=== PATIENT | female | born 1965 | race Caucasian/White ===

== ENCOUNTER 2017-06-11 13:08 | Observation (INO) | payer BC ==
[2017-06-11 13:13] VITALS: BMI 20.7
--- NOTE | 2017-06-11 13:42 | DR.GENAD ---
HPI - HPI Comment HPI Comment: PATIENT WAS AT [facility] [place] WHERE SHE HAD CARDIAC CATH DONE. BIDIRECTIONAL FORAMEN OVALE WAS NOTED. MRI WAS DONE ALSO. SHE IS HAVIND SOME CHEST DISCOMFORT CURRENTLY. NO FEVER. - Complaint/Symptoms Chief Complaint Doctors Comments: NEAR SYNCOPAL EPISODE. PATIENT WAS OBSERVE TO BE PALE AND SHAKY. Chief Complaint:: PATIENT IS SHAKEY,CLAMY, NAUSEOUS. PT STATED SHE JUST HAD A HEART CATH. - Nurses notes reviewed Nurses Notes Review: Yes - Source History Provided: Patient - Mode of Arrival Mode of Arrival: Ambulatory - Timing Onset of Chief Complaint: 06/11/17 Came on: Suddenly - Duration Duration: Constant Duration: Hours - Severity Severity: Moderate PMH - PMH Past Medical History: Yes Past Medical History Comment: AAA, VALVE OPEN WITH BLOOD FLOW FROM ALL 4 DIRECTIONS Past Surgical History: Yes Surgical History: Appendectomy, Tonsillectomy Past Surgical History Comment: HEART CATH - Family History History of Family Medical Conditions: Yes Family Medical History: [place] - Social History Does patient currently use any type of tobacco product: Yes Have you used tobacco products in the last 12 months: Yes Type of Tobacco Use: Cigarettes Does any household member use tobacco: Yes Alcohol Use: DAILY Do you use any recreational Drugs:: No Lives With: Family Lives Where: Home - infectious screening In the last 2 months have you had wt loss of >10#?: NO Have you had fever, night sweats or hemotysis?: No Have you traveled outside the country in the last 6 months?: No Isolation: Standard ROS - Review of Systems Constitutional: Weakness, Fatigue. negative: Chills, Fever, Loss of Appetite Eyes: No Symptoms Reported. negative: Eye Pain, Discharge ENTM: No Symptoms Reported. negative: Ear Pain, Nose Discharge, Nose Congestion , Throat Pain Respiratoy: No Symptoms Reported, Short of Breath. negative: Productive Cough, Non-Productive Cough, Wheezing, Hemoptysis Cardiovascular: Chest Pain, Palpitations. negative: Edema, Syncope (NEAR SYNCOPE) Gastrointestinal/Abdominal: No Symptoms Reported. negative: Constipation, Diarrhea, Nausea, Vomiting Genitourinary: No Symptoms Reported. negative: Dysuria, Frequency, Hematuria Neurological: Headache, Weakness, Dizziness Musculoskeletal: Muscle Pain Integumentary: No Symptoms Reported Hematologic/Lymphatic: No Symptoms Reported Endocrine: No Symptoms Reported All Other Systems: Reviewed and Negative PE - Vital Signs Vitals: Temperature 98.4 F Pulse Rate [Right Brachial] 66 Pulse Rate 95 Respiratory Rate 16 Blood Pressure [Right Arm] 132/81 Blood Pressure 178/104 O2 Sat by Pulse Oximetry 99 - General Limitations: No Limitations General Appearance: Alert, Anxious - Head Head Exam: Atraumatic, Other (LEFT FACIAL PARESTHESIA) - Eyes Eye exam: PERRL, EOMI. negative: Scleral Icterus, Conjunctival Injection, Nystagmus - ENT ENT Exam: Normal External Ear Exam External Ear Exam: Normal External Inspection TM/Canal Exam: Bilateral Normal MDM - Additional Information Additional Information Obtained From: Family - Differential Diagnosis Differential Diagnosis: NEAR SYNCOPE, HYPERTENSION, CHEST PAIN, WEAKNESS Course - Treatment Treatment: SEE ORDERS. - Consultation Consultation Comments: DISCUSS PATIENT WITH DR. GILBERT. HE WILL ADMIT PATIENT. - Education/Counseling Education/Counseling: Patient, Family, Education Educated On: Diagnosis ROR - Labs Reviewed Laboratory Results Reviewed?: Yes Result Diagrams: 06/13/17 03:55 06/13/17 03:55 Laboratory: WBC 12.1 X10^3/uL (3.6-10.0) H 06/11/17 13:52 RBC 4.63 X10^6/uL (3.5-5.4) 06/11/17 13:52 Hgb 14.5 g/dL (12.0-16.0) 06/11/17 13:52 Hct 42.0 % (36.0-47.0) 06/11/17 13:52 MCV 90.8 fL (80.0-100.0) 06/11/17 13:52 MCH 31.3 pg (27.0-34.0) 06/11/17 13:52 MCHC 34.4 g/dL (33.0-35.0) 06/11/17 13:52 RDW 14.5 % (11.6-16.5) 06/11/17 13:52 Plt Count 291 X10^3/uL (150.0-450.0) 06/11/17 13:52 MPV 7.7 fL (7.4-11.0) 06/11/17 13:52 Neut % 68.0 % (42.0-75.0) 06/11/17 13:52 Lymph % 23.3 % (21.0-51.0) 06/11/17 13:52 [place] % 6.2 % (0.0-13.0) 06/11/17 13:52 Eos % 1.4 % (0.9-2.9) 06/11/17 13:52 Baso % 1.1 % (0.2-1.0) H 06/11/17 13:52 Neut # 8.2 x10^3/uL (2.2-4.8) H 06/11/17 13:52 Lymph # 2.8 X10^3/uL (1.3-2.9) 06/11/17 13:52 [place] # 0.7 x10^3/uL (0.3-0.8) 06/11/17 13:52 Eos # 0.2 x10^3/uL (0.0-0.2) 06/11/17 13:52 Baso # 0.1 X10^3/uL (0.0-0.1) 06/11/17 13:52 Absolute Nucleated RBC 0.1 /100WBC 06/11/17 13:52 Sodium 141 mmol/L (136-145) 06/11/17 13:52 Corrected Sodium 143 mmol/L (136-145) 06/11/17 13:52 Potassium 2.9 mmol/L (3.5-5.1) L* 06/11/17 13:52 Chloride 102 mmol/L (98-107) 06/11/17 13:52 Carbon Dioxide 27.8 mmol/L (21-32) 06/11/17 13:52 BUN 15 mg/dL (7-18) 06/11/17 13:52 Creatinine 1.16 mg/dL (0.55-1.02) H 06/11/17 13:52 Est GFR (MDRD) Af Amer > 60 (>60) 06/11/17 13:52 Est GFR (MDRD) Non-Af 52 (>60) L 06/11/17 13:52 Glucose 169 mg/dL (65-99) H 06/11/17 13:52 Calcium 8.7 mg/dL (8.5-10.1) 06/11/17 13:52 Corrected Calcium 9.3 mg/dL (8.5-10.1) 06/11/17 13:52 Total Bilirubin 0.20 mg/dL (0.2-1.0) 06/11/17 13:52 AST 16 Units/L (15-37) 06/11/17 13:52 ALT 21 Units/L (12-78) 06/11/17 13:52 Alkaline Phosphatase 84 Units/L (46-116) 06/11/17 13:52 Creatine Kinase 59 Units/L (26-192) 06/11/17 13:52 CK-MB (CK-2) 0.2 ng/mL (0-4.0) 06/11/17 13:52 CK/CKMB % Calc 0.3 % (<4) 06/11/17 13:52 Troponin I < 0.02 ng/mL (0-1.5) 06/11/17 13:52 Total Protein 7.3 g/dL (6.4-8.2) 06/11/17 13:52 Albumin 3.3 g/dL (3.4-5.0) L 06/11/17 13:52 Globulin 4.0 g/dL (2.5-4.5) 06/11/17 13:52 Albumin/Globulin Ratio 0.8 Ratio (1.1-2.1) L 06/11/17 13:52 - XRAY XRAY Interpreted by: Radiologist XRAY Findings: REPORT DISCUSS WITH PATIENT. - EKG Rhythm: NSR (EKG NOTED) - Diagnosis Discharge Problem: Near syncope, Weakness on left side of face, Hypokalemia Chest pain Qualifiers: Chest pain type: unspecified Qualified Code(s): R07.9 - Chest pain, unspecified - Discharge Plan Disposition: ADMITTED INPATIENT Condition: Stable - Follow ups/Referrals - Instructions
[2017-06-11 14:05] LABS: BASOPHILS # (AUTO) 0.1 X10^3/uL (0.0-0.1); BASOPHILS % (AUTO) 1.1 % (0.2-1.0); EOSINOPHILS # (AUTO) 0.2 x10^3/uL (0.0-0.2); EOSINOPHILS % (AUTO) 1.4 % (0.9-2.9); HEMOGLOBIN 14.5 g/dL (12.0-16.0); LYMPHOCYTES # (AUTO) 2.8 X10^3/uL (1.3-2.9); LYMPHOCYTES % (AUTO) 23.3 % (21.0-51.0); MEAN CORPUSCULAR HEMOGLOBIN 31.3 pg (27.0-34.0); MEAN CORPUSCULAR HGB CONC 34.4 g/dL (33.0-35.0); MEAN CORPUSCULAR VOLUME 90.8 fL (80.0-100.0); MEAN PLATELET VOLUME 7.7 fL (7.4-11.0); MONOCYTES # (AUTO) 0.7 x10^3/uL (0.3-0.8); MONOCYTES % (AUTO) 6.2 % (0.0-13.0); NEUTROPHILS # (AUTO) 8.2 x10^3/uL (2.2-4.8); PLATELET COUNT 291 X10^3/uL (150.0-450.0); RED BLOOD COUNT 4.63 X10^6/uL (3.5-5.4); RED CELL DISTRIBUTION WIDTH 14.5 % (11.6-16.5); WHITE BLOOD COUNT 12.1 X10^3/uL (3.6-10.0)
--- NOTE | 2017-06-11 14:33 | RAD ---
HISTORY: 51-year-old female with chest pain. Study: Frontal view of the chest. Comparison: None. Findings: The trachea is midline. The cardiac silhouette is unremarkable. The lungs are clear without focal consolidation, effusion or pneumothorax. Soft tissues are unremarkable. Osseus structures are unrem arkable. IMPRESSION: 1. No acute cardiopulmonary disease. Reported By:
--- NOTE | 2017-06-11 14:35 | CT ---
CT HEAD WITHOUT CONTRAST CLINICAL HISTORY: 51-year-old female with altered mental status. COMPARISON: None. TECHNIQUE: Multiple, non-contrasted axial CT images were obtained from the skull base to the crania l vertex. Coronal and sagittal reformats were performed. FINDINGS: There are no abnormal intra- or extra-axial fluid collections, midline shift, or mass effe ct. Cesar-white differentiation is normal. Global cortical involutional changes are present that are advanced for the patient's stated age. The ventricular system is mildly enlarged but commensurate wi th the degree of sulcal prominence. Periventricular and supraventricular white matter hypodensity is present that is nonspecific in appearance, but most likely to represent microvascular ischemic montez ges. Atherosclerotic vascular calcification is present within the carotid siphons. The imaged paranasal sinuses, mastoid air cells, and tympanic spaces are clear. IMPRESSION: 1. No definite evidence of an acute intracranial process. If clinical concern persists, recommend MR I/MRA brain. 2. Mild microvascular white matter ischemic changes, with associated volume loss. Reported By:
[2017-06-11 14:37] LABS: ALANINE AMINOTRANSFERASE 21 Units/L (12-78); ALBUMIN 3.3 g/dL (3.4-5.0); ALKALINE PHOSPHATASE 84 Units/L (46-116); ASPARTATE AMINO TRANSFERASE 16 Units/L (15-37); BLOOD UREA NITROGEN 15 mg/dL (7-18); CALCIUM 8.7 mg/dL (8.5-10.1); CARBON DIOXIDE 27.8 mmol/L (21-32); CHLORIDE 102 mmol/L (98-107); COR CA(FOR HYPOALB) 9.3 mg/dL (8.5-10.1); COR NA(FOR HYPERGLY) 143 mmol/L (136-145); CREATINE KINASE 59 Units/L (26-192); CREATININE 1.16 mg/dL (0.55-1.02); GLUCOSE 169 mg/dL (65-99); SODIUM 141 mmol/L (136-145); TOTAL PROTEIN 7.3 g/dL (6.4-8.2); TROPONIN I < 0.02 ng/mL (0-1.5); eGFR BLACK RACES > 60 (>60); eGFR NON BLACK RACES 52 (>60)
[2017-06-11] MEDS ORDERED: POTASSIUM CHLORIDE LIQ 20 MEQ UDC PO ONE (14:51)
[2017-06-11 14:56] LABS: CKMB % 0.3 % (<4); CREATINE KINASE MB 0.2 ng/mL (0-4.0)
[2017-06-11] MEDS ORDERED: POTASSIUM CHLORIDE LIQ 20 MEQ UDC ONE (15:08)
[2017-06-11] MEDS ORDERED: ATIVAN TAB 1 MG PO PRN (17:59)
[2017-06-11 20:57] LABS: CKMB % 0.2 % (<4); CREATINE KINASE MB 0.1 ng/mL (0-4.0)
[2017-06-11] MEDS: RESTORIL CAP 30 MG PO PRN (21:50)
[2017-06-11] MEDS ORDERED: BENADRYL INJ 50 MG VIAL ONE (23:22)
[2017-06-11] MEDS: NS 1000 ML 1,000 ML IV SCH (23:27)
[2017-06-11] MEDS ORDERED: BENADRYL INJ 50 MG VIAL IVP ONE (23:28)
[2017-06-12 02:49] LABS: BASOPHILS # (AUTO) 0.2 X10^3/uL (0.0-0.1); BASOPHILS % (AUTO) 1.7 % (0.2-1.0); EOSINOPHILS # (AUTO) 0.3 x10^3/uL (0.0-0.2); EOSINOPHILS % (AUTO) 2.6 % (0.9-2.9); HEMATOCRIT 38.3 % (36.0-47.0); LYMPHOCYTES # (AUTO) 3.9 X10^3/uL (1.3-2.9); LYMPHOCYTES % (AUTO) 35.5 % (21.0-51.0); MEAN CORPUSCULAR HGB CONC 33.9 g/dL (33.0-35.0); MEAN CORPUSCULAR VOLUME 91.4 fL (80.0-100.0); MEAN PLATELET VOLUME 7.7 fL (7.4-11.0); MONOCYTES # (AUTO) 0.7 x10^3/uL (0.3-0.8); MONOCYTES % (AUTO) 6.6 % (0.0-13.0); NEUTROPHILS # (AUTO) 5.8 x10^3/uL (2.2-4.8); NEUTROPHILS % (AUTO) 53.6 % (42.0-75.0); PLATELET COUNT 244 X10^3/uL (150.0-450.0); RED BLOOD COUNT 4.19 X10^6/uL (3.5-5.4); RED CELL DISTRIBUTION WIDTH 14.8 % (11.6-16.5); WHITE BLOOD COUNT 10.9 X10^3/uL (3.6-10.0)
[2017-06-12 02:58] LABS: ALANINE AMINOTRANSFERASE 19 Units/L (12-78); ALBUMIN 2.7 g/dL (3.4-5.0); ALKALINE PHOSPHATASE 68 Units/L (46-116); ASPARTATE AMINO TRANSFERASE 14 Units/L (15-37); BLOOD UREA NITROGEN 10 mg/dL (7-18); CALCIUM 8.6 mg/dL (8.5-10.1); CARBON DIOXIDE 29.4 mmol/L (21-32); CHLORIDE 108 mmol/L (98-107); CHOL/HDL RATIO 2.3 (0.0-5.0); CHOLESTEROL 147 mg/dL (0-200); COR CA(FOR HYPOALB) 9.6 mg/dL (8.5-10.1); CREATININE 0.91 mg/dL (0.55-1.02); GLUCOSE 88 mg/dL (65-99); HDL CHOLESTEROL 65 mg/dL (40-60); SODIUM 144 mmol/L (136-145); TOTAL PROTEIN 5.9 g/dL (6.4-8.2); TRIGLYCERIDES 74 mg/dL (0-150); eGFR BLACK RACES > 60 (>60); eGFR NON BLACK RACES > 60 (>60)
[2017-06-12 03:12] LABS: CKMB % 2.2 % (<4); CREATINE KINASE 45 Units/L (26-192); CREATINE KINASE MB < 1.0 ng/mL (0-4.0); TROPONIN I < 0.02 ng/mL (0-1.5)
[2017-06-12] MEDS ORDERED: K-DUR TAB 20 MEQ PO PRN (05:57)
[2017-06-12] MEDS ORDERED: POTASSIUM CHLORIDE LIQ 20 MEQ UDC PO PRN (05:57)
[2017-06-12] MEDS ORDERED: K-LYTE EFFERVESCENT PO PRN (05:57)
[2017-06-12] MEDS ORDERED: K-RIDER 10 MEQ/NS 100 ML 10 MEQ/100 ML BAG IV PRN (05:57)
[2017-06-12] MEDS ORDERED: NORCO 5/325 MG TAB ONE (06:01)
[2017-06-12] MEDS ORDERED: K-DUR TAB 20 MEQ PO ONE (06:01)
[2017-06-12] MEDS: NORCO 5/325 MG TAB PO PRN (06:05)
[2017-06-12] MEDS ORDERED: DEMADEX PO SCH (09:00)
[2017-06-12] MEDS ORDERED: NICODERM PATCH 21 MG/24 HR TD ONE (09:45)
[2017-06-12] MEDS: ASPIRIN EC 81 MG PO SCH (09:48)
[2017-06-12] MEDS: NICODERM PATCH 21 MG/24 HR TD SCH (09:49)
[2017-06-12] MEDS: CHECK PATCH XX SCH ×2 (10:00→21:44)
[2017-06-12 11:00] LABS: HEMOGLOBIN A1C 6.1 % (4.5-6.2)
[2017-06-12 11:17] LABS: C-REACTIVE PROTEIN 21.8 mg/L (0-3.0)
--- NOTE | 2017-06-12 12:35 | DR.H&P ---
H&P - History & Physical for Day of: H&P Date: 06/11/17 - Chief Complaint Chief Complaint: CHEST PAIN, DIZZINESS, NAUSEA, FACIAL DROOPING - Allergies Allergies/Adverse Reactions: Allergies Allergy/AdvReac Type Severity Reaction Status Date / Time latex Allergy Verified 06/11/17 16:53 prednisone Allergy Verified 06/11/17 13:09 - History of Present Illness History of Present Illness: IS A 51 YEAR OLD PATIENT OF IN [place]. SHE PRESENTED TO THE ER WITH COMPLAINTS OF CHEST PAIN, SHAKING, DIAPHORESIS, NAUSEA, AND FACIAL DROOPING. PATIENT STATED THAT SYMPTOMS STARTED SUDDENLY, JUST PRIOR TO COMING TO ER. SHE STATED THAT SHE WAS OUTSIDE OF WORK SMOKING WHEN SHE FELT SHE WAS GOING TO PASS OUT. UPON ARRIVAL TO ER, VITALS WERE 98.4, 95, 20, 99%, 178/104. LABS AND XRAYS WERE OBTAINED. CBC WNL EXCEPT WBC 12.1. CMP WNL EXCEPT POTASSIUM 2.9. CREATININE 1.16, GLUCOSE 169, ALBUMIN 3.3. CARDIAC ENZYMES AND EKG WNL. CHEST XRAY NORMAL. A BRAIN CT WAS OBTAINED AND REPORTED NO DEFINITE EVIENCE OF AN ACUTE INTRACRANIAL PROCESS AND MILD MICROVASCULAR WHITE MATTER ISCHEMIC CHANGES, WITH ASSOCIATED VOLUME LOSS. PATIENT REPORTED THAT SHE RECENTLY HAD A HEART CATH. SHE HAS A CARDIAC HISTORY OF AAA, MITRAL VALVE PROLAPSE, AND A PATENT FORAMEN OVALE. WE ADMITTED PATIENT FOR FURTHER TREATMENT AND EVALUATION. BLOOD PRESSURE DECREASED TO 166/86 BEFORE LEAVING THE ER. WE STARTED PATIENT ON NS @ KVO, POTASSIUM PROTOCOL, AND RESTARTED HER HOME MEDICATIONS. WE WILL RECHECK LABS AND FOLLOW UP WITH PATIENT IN AM. - Past Medical History Additional Medical History: AAA, MITRAL VALVE PROLAPSE, PATIENT FORAMEN OVALE - Past Surgical History Surgical History: Appendectomy, , Tonsillectomy - Family History Family Medical History: [place] - Social History Does patient currently use any type of tobacco product: Yes Have you used tobacco products in the last 12 months: Yes Type of Tobacco Use: Cigarettes Does any household member use tobacco: Yes Alcohol Use: DAILY Drug Use: None - Medications Home Medications: Aspirin EC [ASPIRIN EC 81 MG *] 1 tab PO DAILY 06/11/17 [History Confirmed 06/11] Lorazepam 1 tab PO BID PRN 06/11/17 [History Confirmed 06/11/17] Temazepam [RESTORIL 30 MG (GENERIC) *] 1 tab PO HS PRN 06/11/17 [History Confirmed 06/11/17] Torsemide 1 tab PO DAILY 06/11/17 [History Confirmed 06/11/17] - Review of Systems Constitutional: Sweats, Weakness. denies: No Symptoms Reported, See HPI, Fever , Chills, Malaise, Other Eyes: No Symptoms Reported. denies: See HPI, Pain, Vision Change, Conjunctivae Inflammation, Eyelid Inflammation, Redness, Other ENT: No Symptoms Reported. denies: See HPI, Ear Pain, Ear Discharge, Nose Pain , Nose Discharge, Nose Congestion, Mouth Pain, Mouth Swelling, Throat Pain, Throat Swelling, Other Respiratory: No Symptoms Reported. denies: See HPI, Cough, Dry, Shortness of Breath, Hemoptysis, SOB with Excertion, Pleuritic Pain, Sputum, Wheezing, Other Cardiovascular: Chest Pain, Light Headedness Gastrointestinal: Nausea. denies: No Symptoms Reported, See HPI, Vomiting, Abdominal Pain, Diarrhea, Constipation, Melena, Hematochezia, Other Genitourinary: No Symptoms Reported. denies: See HPI, Dysuria, Frequency, Incontinence, Hematuria, Retention, Other Musculoskeletal: No Symptoms Reported. denies: See HPI, Shoulder Pain, Arm Pain , Back Pain, Hand Pain, Leg Pain, Foot Pain, Neck Pain, Other Skin: No Symptoms Reported. denies: See HPI, Rash, Lesions, Jaundice, Bruising , Wound, Ecchymosis, Other Neurological: See HPI, Other (FACIAL DROOPING ). denies: No Symptoms Reported, Weakness, Numbness, Incoordination, Change in Speech, Confusion, Seizures - Physical Exam Vital Signs: Temperature 98.7 F Pulse Rate [Apical] 65 Pulse Rate [Right Brachial] 62 Respiratory Rate 22 Blood Pressure [Right Arm] 106/65 O2 Sat by Pulse Oximetry 98 Oriented: Normal Eyes: Normal Ear: Normal Nose: Normal Throat: Normal Respiratory: Clear Throughout Cardiovascular: Normal : Normal Auscultation: Bowel Sounds: Normal Palpation: Normal Tenderness: Normal Skin: Normal Musculoskeletal: Normal Psychiatric: Normal Mood Description: Calm Affect: Normal Speech Pattern: Clear - Assessment/Plan (1) Chest pain Qualifiers: Chest pain type: unspecified Ischemic chest pain type: I Qualified Code(s ): R07.9 - Chest pain, unspecified Status: Acute Plan: SERIAL CARDIAC ENZYMES AND EKG, CONTINUE TO MONITOR (2) Hypokalemia Status: Acute Plan: POTASSIUM PROTOCOL, RECHECK LABS (3) Near syncope Status: Acute Plan: TELEMETRY, CONTINUE TO MONITOR (4) Weakness on left side of face Status: Acute Plan: ORDER BRAIN MRI, CONTINUE TO MONITOR
--- NOTE | 2017-06-12 17:43 | VAS ---
CAROTID ULTRASOUND CLINICAL INDICATION: Syncope and facial weakness PROCEDURE: Pulsed wave and color-flow duplex imaging was utilized to evaluate the extracranial carot id arteries. COMPARISON: None FINDINGS: Right carotid: Plaque at the bifurcation. No hemodynamically significant stenosis involving the right carotid arter y. The velocities are as follows: Distal CCA peak systolic velocity 47 cm/sec and peak end-diastolic velocity 13 cm/sec, ICA peak syst olic velocity 50 cm/sec and peak end-diastolic velocity 19 cm/sec. Flow within the right vertebral a nd right ECA is directed antegrade. Left carotid: Plaque at the bifurcation. No hemodynamically significant stenosis involving the left carotid artery . The velocities are as follows: Distal CCA peak systolic velocity 68 cm/sec and peak end-diastolic velocity 21 cm/sec, ICA peak syst olic velocity 55 cm/sec and peak end-diastolic velocity 19 cm/sec. Flow within the left vertebral an d left ECA is directed antegrade. IMPRESSION: 1. No hemodynamically significant stenosis involving either the right or left ICA. 2. Normal peak systolic velocity corresponds to a less than 50% diameter stenosis of the right ICA. 3. Normal peak systolic velocity corresponds to a less than 50% diameter stenosis of the left ICA. Reported By:
--- NOTE | 2017-06-12 17:45 | MRI ---
MRI OF THE BRAIN WITHOUT AND WITH IV CONTRAST CLINICAL INDICATION: Facial drooping. History of multiple TIAs. TECHNIQUE: Pre-contrast T1-w, T2, and diffusion-w sequences of the brain with ADC maps. Post-contras t images of the brain. Intravenous contrast material was administered for the examination. COMPARISON: Head CT06/11/2017 FINDINGS: There is no abnormal brain parenchymal signal. There is no mass or mass-effect, or abnormal extra-ax ial fluid collection. Diffusion imaging shows no hyperacute, acute, or early subacute infarction. T he ventricles are normal in size, shape and position. There are normal signal voids in the larger in tracranial vessels. The paranasal sinuses and mastoid air cells are predominantly clear. The marrow signal pattern is within normal limits. There is no abnormal brain parenchymal or leptomeningeal enhancement. IMPRESSION: 1. No acute intracranial abnormality. Reported By:
[2017-06-12] MEDS: ATIVAN TAB 1 MG PO SCH ×3 (18:36→22:11)
[2017-06-12] MEDS: NS 1000 ML 1,000 ML IV SCH (21:07)
--- NOTE | 2017-06-12 21:09 | PCM.PROG ---
Progress Note - Progress Note for Day of Date: 06/12/17 - Subjective Subjective: WAS ADMITTED YESTERDAY FOR CHEST PAIN, DIZZINESS, AND NEAR SYNCOPE. SHE WAS ALERT AND ORIENTED, IN BED, ON MORNING ROUNDS. FAMILY AT BEDSIDE. PATIENT STATES THAT SHE HAD SOME CHEST PAIN THROUGHOUT THE NIGHT, BUT DENIED ANY PAIN ON ROUNDS. UPON AUSCULTATION, LUNGS WERE NOTED CLEAR BILATERALLY. PATIENT REPORTS FACIAL SWELLING THAT IS MORE THAN HER BASELINE. VITALS WERE 97.8, 80, 20, 98%, 115/54. CBC WNL EXCEPT WBC 10.9. CMP WNL EXCEPT POTASSIUM 3.4, CHLORIDE 108, AST 14, CRP 21.80, TOTAL PROTEIN 5.9, ALBUMIN 2.7. SERIAL EKGS AND CARDIAC ENZYMES WERE WNL. WE WILL CHECK A BRAIN MRI WITH CONTRAST PER BRAIN CT RECOMMENDATIONS. WE WILL ORDER A CAROTID US, RECHECK LABS , AND FOLLOW UP WITH PATIENT IN AM. - Past Medical Family Social History Past Med/Fam/Surg Hx: No changes since H&P Allergies: Allergies latex Allergy (Verified 06/11/17 16:53) prednisone Allergy (Verified 06/11/17 13:09) - Review of Systems ROS: No change since H&P - Vital Signs and I&O's Vital Signs: Temperature 97.7 F Pulse Rate [Apical] 59 Pulse Rate [Right Brachial] 62 Respiratory Rate 24 Blood Pressure [Right Arm] 131/82 O2 Sat by Pulse Oximetry 99 Intake and Output: Intake & Output 06/10/17 06/11/17 06/12/17 06/13/17 11:59 11:59 11:59 11:59 Intake Total 960 360 Balance 960 360 - Physical Exam Oriented: Normal Eyes: Normal Ear: Normal Nose: Normal Throat: Normal Respiratory: Normal Cardiovascular: Normal : Normal Auscultation: Bowel Sounds: Normal Palpation: Normal Tenderness: Normal Skin: Normal Musculoskeletal: Normal Psychiatric: Normal Mood Description: Calm Affect: Normal Speech Pattern: Clear, Appropriate - Laboratory and Diagnostics Result Diagrams: 06/12/17 02:20 06/12/17 02:20 Labs: Laboratory WBC 10.9 X10^3/uL (3.6-10.0) H 06/12/17 02:20 RBC 4.19 X10^6/uL (3.5-5.4) 06/12/17 02:20 Hgb 13.0 g/dL (12.0-16.0) 06/12/17 02:20 Hct 38.3 % (36.0-47.0) 06/12/17 02:20 MCV 91.4 fL (80.0-100.0) 06/12/17 02:20 MCH 31.0 pg (27.0-34.0) 06/12/17 02:20 MCHC 33.9 g/dL (33.0-35.0) 06/12/17 02:20 RDW 14.8 % (11.6-16.5) 06/12/17 02:20 Plt Count 244 X10^3/uL (150.0-450.0) 06/12/17 02:20 MPV 7.7 fL (7.4-11.0) 06/12/17 02:20 Neut % 53.6 % (42.0-75.0) 06/12/17 02:20 Lymph % 35.5 % (21.0-51.0) 06/12/17 02:20 [place] % 6.6 % (0.0-13.0) 06/12/17 02:20 Eos % 2.6 % (0.9-2.9) 06/12/17 02:20 Baso % 1.7 % (0.2-1.0) H 06/12/17 02:20 Neut # 5.8 x10^3/uL (2.2-4.8) H 06/12/17 02:20 Lymph # 3.9 X10^3/uL (1.3-2.9) H 06/12/17 02:20 [place] # 0.7 x10^3/uL (0.3-0.8) 06/12/17 02:20 Eos # 0.3 x10^3/uL (0.0-0.2) H 06/12/17 02:20 Baso # 0.2 X10^3/uL (0.0-0.1) H 06/12/17 02:20 Absolute Nucleated RBC 0.0 /100WBC 06/12/17 02:20 ESR 10 MM/HOUR (0-20) 06/12/17 10:33 INR Target Range - 06/12/17 02:20 INR 1.03 (0.8-1.3) 06/12/17 02:20 PTT 28.6 SECONDS (22.9-36.5) 06/12/17 02:20 PTT Comment - 06/12/17 02:20 Sodium 144 mmol/L (136-145) 06/12/17 02:20 Corrected Sodium TNP 06/12/17 02:20 Potassium 3.4 mmol/L (3.5-5.1) L 06/12/17 02:20 Chloride 108 mmol/L (98-107) H 06/12/17 02:20 Carbon Dioxide 29.4 mmol/L (21-32) 06/12/17 02:20 BUN 10 mg/dL (7-18) 06/12/17 02:20 Creatinine 0.91 mg/dL (0.55-1.02) 06/12/17 02:20 Est GFR (MDRD) Af Amer > 60 (>60) 06/12/17 02:20 Est GFR (MDRD) Non-Af > 60 (>60) 06/12/17 02:20 Glucose 88 mg/dL (65-99) 06/12/17 02:20 Hemoglobin A1c 6.1 % (4.5-6.2) 06/12/17 10:33 Calcium 8.6 mg/dL (8.5-10.1) 06/12/17 02:20 Corrected Calcium 9.6 mg/dL (8.5-10.1) 06/12/17 02:20 Total Bilirubin 0.30 mg/dL (0.2-1.0) 06/12/17 02:20 AST 14 Units/L (15-37) L 06/12/17 02:20 ALT 19 Units/L (12-78) 06/12/17 02:20 Alkaline Phosphatase 68 Units/L (46-116) 06/12/17 02:20 Creatine Kinase 45 Units/L (26-192) 06/12/17 02:20 CK-MB (CK-2) < 1.0 ng/mL (0-4.0) 06/12/17 02:20 CK/CKMB % Calc 2.2 % (<4) 06/12/17 02:20 Troponin I < 0.02 ng/mL (0-1.5) 06/12/17 02:20 C-Reactive Protein 21.80 mg/L (0-3.0) H 06/12/17 10:33 Total Protein 5.9 g/dL (6.4-8.2) L 06/12/17 02:20 Albumin 2.7 g/dL (3.4-5.0) L 06/12/17 02:20 Globulin 3.2 g/dL (2.5-4.5) 06/12/17 02:20 Albumin/Globulin Ratio 0.8 Ratio (1.1-2.1) L 06/12/17 02:20 Triglycerides 74 mg/dL (0-150) 06/12/17 02:20 Cholesterol 147 mg/dL (0-200) 06/12/17 02:20 LDL Cholesterol, Calc 67 mg/dL (0-100) 06/12/17 02:20 HDL Cholesterol 65 mg/dL (40-60) H 06/12/17 02:20 Cholesterol/HDL Ratio 2.3 (0.0-5.0) 06/12/17 02:20 - Plan (1) Chest pain Status: Acute Qualifiers: Chest pain type: unspecified Ischemic chest pain type: I Qualified Code(s ): R07.9 - Chest pain, unspecified Plan: SERIAL CARDIAC ENZYMES AND EKG, CONTINUE TO MONITOR (2) Hypokalemia Status: Acute Plan: POTASSIUM PROTOCOL, RECHECK LABS (3) Near syncope Status: Acute Plan: TELEMETRY, CONTINUE TO MONITOR (4) Weakness on left side of face Status: Acute Plan: ORDER BRAIN MRI, CONTINUE TO MONITOR
[2017-06-12] MEDS: RESTORIL CAP 30 MG PO PRN (21:44)
[2017-06-12] MEDS: INDERAL TAB 10 MG PO SCH (21:44)
[2017-06-13] MEDS: NORCO 5/325 MG TAB PO PRN (00:14)
[2017-06-13 04:28] LABS: BASOPHILS % (AUTO) 0.2 % (0.2-1.0); EOSINOPHILS # (AUTO) 0.4 x10^3/uL (0.0-0.2); EOSINOPHILS % (AUTO) 4.2 % (0.9-2.9); HEMATOCRIT 36.9 % (36.0-47.0); HEMOGLOBIN 12.5 g/dL (12.0-16.0); LYMPHOCYTES # (AUTO) 3.6 X10^3/uL (1.3-2.9); LYMPHOCYTES % (AUTO) 42.5 % (21.0-51.0); MEAN CORPUSCULAR HEMOGLOBIN 31.1 pg (27.0-34.0); MEAN CORPUSCULAR HGB CONC 33.8 g/dL (33.0-35.0); MEAN PLATELET VOLUME 7.9 fL (7.4-11.0); MONOCYTES # (AUTO) 0.5 x10^3/uL (0.3-0.8); MONOCYTES % (AUTO) 5.6 % (0.0-13.0); NEUTROPHILS % (AUTO) 47.5 % (42.0-75.0); PLATELET COUNT 254 X10^3/uL (150.0-450.0); RED BLOOD COUNT 4.01 X10^6/uL (3.5-5.4); RED CELL DISTRIBUTION WIDTH 14.5 % (11.6-16.5); WHITE BLOOD COUNT 8.4 X10^3/uL (3.6-10.0)
[2017-06-13 04:39] LABS: ALANINE AMINOTRANSFERASE 20 Units/L (12-78); ALBUMIN 2.6 g/dL (3.4-5.0); ALKALINE PHOSPHATASE 63 Units/L (46-116); ASPARTATE AMINO TRANSFERASE 16 Units/L (15-37); BLOOD UREA NITROGEN 12 mg/dL (7-18); CALCIUM 8.4 mg/dL (8.5-10.1); CARBON DIOXIDE 27.5 mmol/L (21-32); CHLORIDE 107 mmol/L (98-107); COR CA(FOR HYPOALB) 9.5 mg/dL (8.5-10.1); CREATININE 0.95 mg/dL (0.55-1.02); GLUCOSE 91 mg/dL (65-99); SODIUM 141 mmol/L (136-145); TOTAL PROTEIN 5.9 g/dL (6.4-8.2); eGFR BLACK RACES > 60 (>60); eGFR NON BLACK RACES > 60 (>60)
[2017-06-13 05:13] LABS: ERYTHROCYTE SEDIMENTATION RATE 13 MM/HOUR (0-20)
[2017-06-13] MEDS: ATIVAN TAB 1 MG PO SCH (06:08)
--- NOTE | 2017-06-13 07:41 | RAD ---
HISTORY: Chest pain, near syncope Study: Single-view chest Comparison: 05/2017 Findings: The trachea is midline. The cardiac silhouette is unremarkable. The lungs are clear without focal infiltrate or effusion. The bony thorax is unremarkable. IMPRESSION: 1. No acute cardiopulmonary disease. Reported By:
[2017-06-13 08:58] VITALS: BP 121/75
[2017-06-13] MEDS: ASPIRIN EC 81 MG PO SCH (08:58)
[2017-06-13] MEDS: NICODERM PATCH 21 MG/24 HR TD SCH (08:59)
[2017-06-13] MEDS: INDERAL TAB 10 MG PO SCH (08:59)
[2017-06-13] MEDS: CHECK PATCH XX SCH (08:59)
--- NOTE | 2017-06-14 17:59 | DR.CARTERD ---
- Discharge Summary for: Discharge Summary for Date of:: 06/13/17 - Admission Date Date of Admission: 06/11/17 - Admission Diagnoses Admission Diagnosis: (1) Chest pain (2) Hypokalemia (3) Near syncope (4) Weakness on left side of face - Discharge Date Discharge Date: 06/13/17 - Discharge Diagnoses Discharge Diagnosis: (1) Chest pain (2) Hypokalemia (3) Near syncope (4) Weakness on left side of face - Hospital Course Hospital Course: IS A 51 YEAR OLD PATIENT OF IN [place]. SHE PRESENTED TO THE ER WITH COMPLAINTS OF CHEST PAIN, SHAKING, DIAPHORESIS, NAUSEA, AND FACIAL DROOPING. PATIENT STATED THAT SYMPTOMS STARTED SUDDENLY, JUST PRIOR TO COMING TO ER. SHE STATED THAT SHE WAS OUTSIDE OF WORK SMOKING WHEN SHE FELT SHE WAS GOING TO PASS OUT. UPON ARRIVAL TO ER, VITALS WERE 98.4, 95, 20, 99%, 178/104. LABS AND XRAYS WERE OBTAINED. CBC WNL EXCEPT WBC 12.1. CMP WNL EXCEPT POTASSIUM 2.9. CREATININE 1.16, GLUCOSE 169, ALBUMIN 3.3. CARDIAC ENZYMES AND EKG WNL. CHEST XRAY NORMAL. A BRAIN CT WAS OBTAINED AND REPORTED NO DEFINITE EVIENCE OF AN ACUTE INTRACRANIAL PROCESS AND MILD MICROVASCULAR WHITE MATTER ISCHEMIC CHANGES, WITH ASSOCIATED VOLUME LOSS. PATIENT REPORTED THAT SHE RECENTLY HAD A HEART CATH. SHE HAS A CARDIAC HISTORY OF AAA, MITRAL VALVE PROLAPSE, AND A PATENT FORAMEN OVALE. WE ADMITTED PATIENT FOR FURTHER TREATMENT AND EVALUATION. BLOOD PRESSURE DECREASED TO 166/86 BEFORE LEAVING THE ER. WE STARTED PATIENT ON NS @ KVO, POTASSIUM PROTOCOL, AND RESTARTED HER HOME MEDICATIONS. ON DAY 2 OF HOSPITAL SAY, WE CHECKED A BRAIN MRI AND A CAROTID US. BRAIN MRI REPORTED NO ACUTE INTRACRANIAL ABNORMALITY. CAROTID US REPORTED NORMAL PEAK SYSTOLIC VELOCITY CORRESPONDS TO A LESS THAN 50% DIAMETER STENOSIS IN LEFT AND RIGHT ICA. WE STARTED PATIENT ON PROPRANOLOL BID, NICOTINE PATCH, INCREASED ATIVAN TO TID, AND DISCONTINUED TORSEMIDE. ON DAY OF DISCHARGE, PATIENT IS ALERT IN BED ON MORNING ROUNDS. SHE IS WITH NO COMPLAINTS THIS MORNING. VITALS WERE 98.0-58-18-100%-121/75. CBC WNL. CMP WNL EXCEPT CALCIUM 8.1, CRP 14.00, TOTAL PROTEIN 5.9, ALBUMIN 2.6, ESR 13. CHEST XRAY CLEAR. WE DISCUSSED WITH PATIENT THE NEED TO FOLLOW UP WITH A CILNICAL SCIENTIST, HER HOSPITAL ACCOUNT LIAISON, AND AND THE NEED TO REFRAIN FROM EXERTING HERSELF OR LIFTING OVER 20 LBS UNTIL RELEASED BY SPECIALIST. WE WILL GIVEN PATIENT A 90 DAY WORK EXCUSE. WE PLANNED FOR DISCHARGE. INSTRUCTIONS FOR MEDICATIONS AND FOLLOW UP WERE GIVEN TO PATIENT AND FAMILY. BOTH VERBALIZED UNDERSTANDING. PATIENT DISCHARGED HOME IN STABLE CONDITION WITH FAMILY. SHE WAS DISCHARGED WITH PRESCRIPTION FOR PROPRANOLOL XL 60MG DAILY, ATIVAN 1MG TID, NICOTINE 21MG PATCH, AND ECOTRIN 325 MG DAILY - Discharge Medications Discharge Medications: Temazepam [RESTORIL 30 MG (GENERIC) *] 1 tab PO HS PRN 06/11/17 [History] Aspirin EC [ECOTRIN 325 MG *] 325 mg PO DAILY #90 tab 06/13/17 [Rx] Lorazepam [ATIVAN 1 MG TAB *] 1 mg PO TID #90 tab 06/13/17 [Rx] Nicotine Patch 21 mg/24 Hr [NICODERM PATCH 21 MG *] 1 ea TD DAILY #30 patch [Rx] Propranolol HCl [Inderal LA] 60 mg PO DAILY #30 cap.sa.24h 06/13/17 [Rx]
== END 2017-06-13 09:00 | disposition home or self-care (01) ==
LOC: ER 13:23 → ICU 17:54
PROVIDERS: ADMIT Internal Medicine; ATTEND Internal Medicine
DX: R07.89 Other chest pain (principal); R55 Syncope and collapse; R29.810 Facial weakness; R53.83 Other fatigue; E87.6 Hypokalemia; R94.31 Abnormal electrocardiogram [ECG] [EKG]; D72.828 Other elevated white blood cell count; I71.4 Abdominal aortic aneurysm, without rupture; Z86.79 Personal history of other diseases of the circulatory system; Z79.1 Long term (current) use of non-steroidal anti-inflammatories (NSAID)
CPT/HCPCS: 36415; 70450; 70552; 71010; 80053; 80061; 82550; 82553; 83036; 84132; 84484; 85025; 85610; 85652; 85730; 86140; 93005; 93010; 93880; 96365; 99284; A4222; G0378; J1200